=== PATIENT | male | born 1955 | race Caucasian/White ===

== ENCOUNTER 2017-04-26 19:18 | Inpatient (IN) | payer MEDICAID, OTHER ==
[~2017-04-26] VITALS: Ht 185.4 cm; Wt 81.6 kg
[2017-04-26] MEDS: NACL 0.9% 1,000 ML IV SCH
--- NOTE | 2017-04-26 19:18 | NUR ---
PT MERRY ALS. TAKEN TO BED 3
[2017-04-26 19:20] VITALS: BP 102/51
--- NOTE | 2017-04-26 19:20 | NUR ---
RT AT BEDSIDE
--- NOTE | 2017-04-26 19:20 | NUR ---
61Y/M PT. BIBA TO ED WITH C/O ALOC. PT. HX. HEPATIC ENCEPHALOPATHY, LIVER CIRRHOSIS. AAO X1, TO SELF, GCS 10, BOTH PUPILS 5 MM REACT. UNAABLE TO AMBULATE. RESPIRATIONS ON SIMPLE MASK O2 10 KLPM, LABORED, O2 SAT 100%, BL LUNG CLEAR. SKIN WARM AND DRY, BLE EDEMA +4. MULTIPLE BRUISES TO CHEST. COCCYX OPEN AREA. NO C/O PAIN, VSS, DR. OCONNOR AT BEDSIDE.
[2017-04-26] MEDS ORDERED: [UNRECOGNIZED DRUG - OTHER] PO (19:39)
[2017-04-26] MEDS ORDERED: ALBU2.5V (19:39)
[2017-04-26] MEDS ORDERED: RIFA550T (19:39)
[2017-04-26] MEDS ORDERED: ATI.5 (19:39)
[2017-04-26] MEDS ORDERED: THIA100T52 (19:39)
[2017-04-26] MEDS ORDERED: HAL1 PO (19:39)
[2017-04-26] MEDS ORDERED: PIPERACILLIN/TAZOBACTAM 3.375 GM in DEXTROSE 5% 50 ML IV ONE (20:20)
[2017-04-26] MEDS ORDERED: NACL 0.9% 1,000 ML IV ONE (20:20)
[2017-04-26 20:21] LABS: HEMOGLOBIN 10.8 g/dL (12.0-18.0); MEAN CORPUSCULAR HEMOGLOBIN 31 pg (27-31); MEAN CORPUSCULAR HGB CONC 33 g/dL (33-37); MEAN CORPUSCULAR VOLUME 95 fL (80-94); PLATELET COUNT (AUTO) 245 K/uL (140-450); RED BLOOD CELL COUNT(AUTO) 3.48 MIL/uL (4.20-6.10); RED CELL DISTRIBUTION WIDTH 19.4 % (11.6-13.7); WHITE BLOOD COUNT (AUTO) 10.1 K/uL (4.8-10.8)
[2017-04-26 20:41] LABS: LYMPHOCYTES % (MANUAL) 4 % (20-46); MONOCYTES % (MANUAL) 6 % (5-12)
[2017-04-26 20:48] LABS: AMYLASE 32 U/L (25-115); LIPASE 101 U/L (73-393)
[2017-04-26 20:49] LABS: PROTHROMBIN TIME 19.7 secs (10.8-13.4)
--- NOTE | 2017-04-26 20:49 | NUR ---
PT TAKEN TO CT
[2017-04-26 20:52] LABS: ALBUMIN 2.4 g/dL (3.4-5.0); ANION GAP 23.2 (8-16); CARBON DIOXIDE 16.6 mmol/L (21-32); POTASSIUM 4.8 mmol/L (3.5-5.1); TOTAL BILIRUBIN 6.5 mg/dL (0.0-1.0)
[2017-04-26] MEDS ORDERED: LACTULOSE 20 GM/30 ML UDC PO ONE (21:10)
[2017-04-26 21:26] LABS: APPEARANCE,URINE HAZY (CLEAR); BILIRUBIN,URINE NEGATIVE (NEGATIVE); BLOOD, URINE 3+ (NEGATIVE); COLOR,URINE YELLOW (YELLOW); LEUKOCYTE ESTERASE ,URINE 2+ (NEGATIVE); NITRITE, URINE NEGATIVE (NEGATIVE); UGLUCOSE NEGATIVE (NEGATIVE)
[2017-04-26] MEDS ORDERED: PIPERACILLIN/TAZOBACTAM 3.375 GM VIAL IV ONE (21:27)
--- NOTE | 2017-04-26 21:30 | NUR ---
PT. BACK FROM CT
[2017-04-26 21:43] LABS: RBC,URINE 3-10 (FEW) /HPF (0-5)
[2017-04-26 21:46] LABS: WBC,URINE TOO MANY TO COUNT /HPF (0-5); YEAST,URINE Rare /HPF (None Seen)
--- NOTE | 2017-04-26 22:00 | NUR ---
NG TUBE INSERTED PER DR. OCONNOR ORDERED.
[2017-04-26] MEDS ORDERED: HYDROcodone/APAP 7.5/325 MG 1 TAB PO PRN (22:55)
[2017-04-26] MEDS ORDERED: ACETAMINOPHEN 325 MG TAB PO PRN (22:55)
[2017-04-26] MEDS ORDERED: ONDANSETRON 4 MG/2 ML VIAL IVP PRN (22:55)
--- NOTE | 2017-04-26 23:00 | NUR ---
CHANGE TO NC 4 LPM, O 2 SAT 100%. NO S/SX OF DISTRESS AT THIS TIME.
[2017-04-26] MEDS ORDERED: LORazepam 0.5 MG TAB PO PRN (23:05)
--- NOTE | 2017-04-26 23:31 | NUR ---
PATIENT ADMITTED TO THE UNIT FROM ER. REPORT RECEIVED AT BEDSIDE FROM ER NURSE. PATIENT IS AOX0. PATIENT IS APHASIC. SKIN IS JAUNDICED. ECCHYMOSIS NOTED ON UPPER CHEST. ERYTHEMA NOTED ON RIGHT SIDE OF NECK. NG TUBE NOTED ON LEFT NARES. PATIENT ON 4L O2 VIA NC. PITTING EDEMA NOTED ON BILATERAL LOWER EXTREMITIES +3. WILL CONTINUE TO MONITOR.
--- NOTE | 2017-04-26 23:33 | NUR ---
Patient will be admitted to care of . Admited to TELEMETRY. Will go to [id number]. Belongings list completed. Report to JAMES.
[2017-04-27] VITALS (23 sets, daily range): BP systolic 90–127; BP diastolic 51–80
--- NOTE | 2017-04-27 | NUR ---
NOTIFIED DR. HOPE OF PATIENT'S DECREASING BLOOD PRESSURE. Addendum: 04/27/17 at 0245 by Nils White RN DR. HOPE STATED THAT PATIENT WILL BE TRANSFERRED TO ICU
[2017-04-27] MEDS ORDERED: FLUCONAZOLE 100 MG TAB PO SCH (00:12)
--- NOTE | 2017-04-27 01:30 | NUR ---
RECEIVED REPORT FROM FREDIS Manuel PT SKIN VERY DRY COLD TO TOUCH COLOR JAUNDICE, HE IS UN RESPONSIVE ON O2 EXTREAMITIES FLACID. ABDOMEN SOFT B/S HYPO ACTIVE LOWER EXTREMITIES PITTING EDEMATES +3 .GENITAL AREA REDNESS . SACCRAL AND BOTTOCK AREA IS REDDENESS HAS SOME BLOOD SIPPING IN SOME SPOT.
--- NOTE | 2017-04-27 01:30 | NUR ---
PATIENT REPORT GIVEN AT BEDSIDE TO ICU NURSE FOR CONTINUITY OF CARE
--- NOTE | 2017-04-27 01:40 | NUR ---
INTUBATED BY BRENNEN BLAKELY FROM ER AND DR. HOPE . ETT TO VENT SETTING AC 12 VT 500 FIO2 40% PEEP OF 5 PT REMAIN UNRESPONSIVE. HIS VITAL SIGN WITH IN NORMAL LIMIT.
--- NOTE | 2017-04-27 02:02 | NUR ---
CALLED TO ICU TO ASSES INTUBATION FOR PT IN BED 3 , WHO WAS JUST ADMITTED FROM ER. PT WAS INTUBATES WITH SIZE 7,5 AT 23AT LIP, AC 12, VT 500, PEEP 5, 40%, PT IS DRY , UNABLE TO OBTAIN SPUTUM FOR CULTURE.VENT CK DONE, DR AT BED SIDE TO PLACE CENTRAL LINE.
--- NOTE | 2017-04-27 02:10 | NUR ---
STEPHANIE LINE INSERTED BY JAYY BLAKELY AT RT, IJ.
--- NOTE | 2017-04-27 03:00 | NUR ---
RHODES CATH INSERTED HAS THICK PURULENT DRAINAGE RETURN SPECMENT SENT TO C/S.
[2017-04-27 04:54] LABS: FREE T4 (FREE THYROXINE) 0.91 ng/dL (0.76-1.46); MAGNESIUM 2.6 mg/dL (1.8-2.4); THYROID STIMULATING HORMONE 9.73 uIU/mL (0.34-3.74)
[2017-04-27] MEDS ORDERED: PIPER/TAZO 2.25GM/D5W PREMIX 50 ML IV SCH ×2 (05:00→08:27)
--- NOTE | 2017-04-27 05:09 | NUR ---
LAB CALLED [facility]. PT. LAB PHOSPHORUS 9.9. DEVON NOTIFIED NO ORDER CHANGED.
[2017-04-27 05:11] LABS: PHOSPHORUS 9.9 mg/dL (2.5-4.9)
--- NOTE | 2017-04-27 05:27 | NUR ---
SPUTUM COLLECTED, GAVE TO MARYANA MENDOZA, MOD THICK LITE BROWN
--- NOTE | 2017-04-27 06:10 | NUR ---
HAS HEMATURIA DR KEEN INFORMED.
[2017-04-27] MEDS: NACL 0.9% 1,000 ML IV SCH ×3 (06:59→22:44)
[2017-04-27] MEDS: metroNIDAZOLE 500 MG/NS PREMIX 100 ML IV SCH ×3 (07:00→22:48)
[2017-04-27] MEDS ORDERED: PIPERACILLIN/TAZOBACTAM 2.25 GM VIAL IV ONE (07:06)
--- NOTE | 2017-04-27 07:30 | NUR ---
RECEIVED REPORT FROM CANTRELL RN. PT UNRESPONSIVE TO NAME OR LIGHT PAIN STIMULI. BEDSIDE MONITOR SHOWS SR, ETT TO VENT WITH SETTING FIO2 40%,AC 12, VT 500, PEEP 5. NO S/S OF RESPIRATORY DISTRESS NOTED. GAG REFLEX NOTED. LUNG SOUND DIMINISHED UPON AUSCULTATION. NG TUBE IN PLACE, IV TO LEFT AC # 20 RUNNING NS AT 125 ML/HR. STEPHANIE CATH TO RIGHT IJ NOTED. RHODES CATH IN PLACE WITH SAMLL AMOUNT OF PURULENT URINE AND HEMATURIA NOTED. SKIN NON INTACT MULTIPLE ECCHYMOSIS NOTED. +3 PITTING EDEMA TO BOTH LOWER EXTREMITIES NOTED. PT UNABLE TO TURN HIMSELF, HOB ELEVATED 30 DEGREES WITH LOW BED POSITION, WILL CONTINUE TO MONITOR.
--- NOTE | 2017-04-27 07:41 | NUR ---
RECEIVED INTUBATED PT WITH 7.5 ETT SECURED @23 TEETH/GUMS ON VENT. SETTINGS AC 12, VT 500, PEEP 5 AND FIO2 40 %. PT SUCTIONED OBTAINED SMALL AMOUNT OF THICK YELLOW SECRETIONS,AIRWAY IS PATENT. PT IS NOT BITING OR KINKING OF ETT. VENT IS PLUGGED INTO RED OUTLET WITH ALARMS ON AND FUNCTIONING. PT IS NOT SOB AND NOT IN RESPIRATORY DISTRESS. WILL CONTINUE TO MONITOR.
--- NOTE | 2017-04-27 08:00 | NUR ---
ORAL CARE RENDERED. TURNED AND REPOSITIONED PT.
[2017-04-27] MEDS: LACTULOSE 20 GM/30 ML UDC PO SCH ×3 (08:18→16:16)
[2017-04-27] MEDS: CALCIUM ACETATE 667 MG TAB PO SCH ×3 (08:18→16:16)
[2017-04-27] MEDS: DOCUSATE SODIUM 100 MG GELCAP PO SCH ×2 (08:21→21:00)
[2017-04-27] MEDS: HALOPERIDOL 1 MG TAB PO SCH ×2 (09:00→21:00)
[2017-04-27] MEDS ORDERED: LACTULOSE 20 GM/30 ML UDC PO SCH (09:00)
[2017-04-27] MEDS ORDERED: LACTOBACILLUS RHAMNOSUS GG 1 EACH CAP PO SCH (09:00)
--- NOTE | 2017-04-27 09:00 | NUR ---
DUE MEDS GIVEN. PT TOLERATED WELL.
[2017-04-27 09:23] LABS: BASOPHILS # (AUTO) 0.1 K/uL (0.00-0.22); EOSINOPHILS # (AUTO) 0.1 K/uL (0-0.4); EOSINOPHILS % (AUTO) 0.8 % (0.0-4.0); HEMATOCRIT 28.7 % (36-52); HEMOGLOBIN 9.5 g/dL (12.0-18.0); LYMPHOCYTES # (AUTO) 1.2 K/uL (2.0-11.5); LYMPHOCYTES % (AUTO) 8.7 % (20.5-51.1); MEAN CORPUSCULAR HEMOGLOBIN 31 pg (27-31); MEAN CORPUSCULAR HGB CONC 33 g/dL (33-37); MEAN CORPUSCULAR VOLUME 94 fL (80-94); MONOCYTES # (AUTO) 0.1 K/uL (0.8-1.0); MONOCYTES % (AUTO) 0.4 % (1.7-9.3); NEUTROPHILS # (AUTO) 11.9 K/uL (1.8-7.7); NEUTROPHILS % (AUTO) 89.1 % (42.2-75.2); PLATELET COUNT (AUTO) 205 K/uL (140-450); RED BLOOD CELL COUNT(AUTO) 3.05 MIL/uL (4.20-6.10); RED CELL DISTRIBUTION WIDTH 19.6 % (11.6-13.7); WHITE BLOOD COUNT (AUTO) 13.4 K/uL (4.8-10.8)
[2017-04-27 09:23] LABS: BARBITURATE, URINE NEG. ng/ml (NEG <=200); BENZODIAZEPINE, URINE NEG. ng/mL (NEG <=200); CANNABINOID, URINE NEG. ng/mL (NEG <=50); COCAINE, URINE NEG. ng/mL (NEG <=300); OPIATE, URINE NEG. ng/mL (NEG <=2000); PHENCYCLIDINE SCREEN,URINE NEG. ng/mL (NEG <=25)
[2017-04-27 09:40] LABS: ANION GAP 22.5 (8-16); CARBON DIOXIDE 13.8 mmol/L (21-32); POTASSIUM 4.3 mmol/L (3.5-5.1)
[2017-04-27 09:44] LABS: CHOL/HDL RATIO 3.3 (1-4.5); MAGNESIUM 2.5 mg/dL (1.8-2.4)
[2017-04-27 10:00] LABS: CREATININE 7.8 mg/dL (0.7-1.3)
[2017-04-27 10:02] LABS: PHOSPHORUS 9.6 mg/dL (2.5-4.9)
--- NOTE | 2017-04-27 10:41 | NUR ---
PAGED CALCINER FEEDER, [place] HEAT[place], REGARDING SCHEDULED TREATMENT FOR TODAY. [place] AWARE.
[2017-04-27] MEDS: FAMOTIDINE 20 MG/2 ML VIAL IV SCH (11:15)
[2017-04-27] MEDS ORDERED: PROBIOTIC SCREEN 1 EA MISC MC PRN (11:30)
[2017-04-27] MEDS ORDERED: ALBUMIN HUMAN 25% 100 ML IV PRN (12:50)
[2017-04-27 14:15] LABS: ANION GAP 21.2 (8-16); POTASSIUM 4.2 mmol/L (3.5-5.1)
[2017-04-27 14:19] LABS: CREATININE 7.8 mg/dL (0.7-1.3)
--- NOTE | 2017-04-27 14:40 | NUR ---
PT'S FRIENDS PRESENT AT BEDSIDE, PT OPENS EYES AT THIS TIME BUT UNABLE TO FOLLOW COMMANDS.
--- NOTE | 2017-04-27 15:38 | NUR ---
PT SUCTIONED OBTAINED SMALL AMOUNT OF THICK YELLOW SECRETIONS. ETT IS SECURE WITH A PATENT AIRWAY. PT IS NOT SOB AND NOT IN RESPIRATORY DISTRESS AT THIS TIME. WILL CONTINUE TO MONITOR.
--- NOTE | 2017-04-27 16:25 | NUR ---
DIALYSIS NURSE RN CHOL STARTED DIALYSIS AT THIS TIME.
[2017-04-27] MEDS ORDERED: PHYTONADIONE 10 MG/ML AMP SUBQ SCH (17:30)
--- NOTE | 2017-04-27 17:31 | NUR ---
PT REMAINS ON DOCUMENTED SETTINGS NO CHANGES MADE TO VENT. PT IS NOT SOB AND NOT IN RESPIRATORY DISTRESS. ETT REMAINS SECURE WITH ANCHOR FAST DEVICE AND A PATENT AIRWAY IS STILL MAINTAINED. VENT ALARMS REMAIN ON AND FUNCTIONING.
--- NOTE | 2017-04-27 18:25 | NUR ---
DIALYSIS STOPPED AT THIS TIME, PER RN CHOL, NO OUTPUT.
--- NOTE | 2017-04-27 19:15 | NUR ---
REPORT GIVEN TO SALES OPERATIONS ASSISTANT RN.
--- NOTE | 2017-04-27 21:55 | NUR ---
PT HAD LARGE AMOUNT OF YELLOW LOOSE BOWEL MOVEMENT. COLACE NOT GIVEN.
[2017-04-27] MEDS: PIPER/TAZO 2.25GM/D5W PREMIX 50 ML IV SCH (22:08)
--- NOTE | 2017-04-27 23:00 | NUR ---
DR. MONTIEL AT BEDSIDE, UPDATED OF PATIENT'S CONDITION.
[2017-04-28] VITALS (24 sets, daily range): BP systolic 75–99; BP diastolic 51–68
--- NOTE | 2017-04-28 01:30 | NUR ---
NO SIGNS OF DISTRESS/NO SOB NOTED. PT IS CALM AT THIS TIME.
[2017-04-28] MEDS ORDERED: MORPHINE SULFATE 2 MG/ML SYR IVP PRN (02:20)
[2017-04-28] MEDS ORDERED: LORazepam 50 MG in NACL 0.9% 25 ML IV PRN (02:20)
--- NOTE | 2017-04-28 02:36 | NUR ---
LARGE YELLOW TO BROWN LOOSE BOWEL MOVEMENT
[2017-04-28] MEDS: NACL 0.9% 1,000 ML IV SCH ×3 (04:36→23:40)
[2017-04-28] MEDS ORDERED: PROPOFOL 1000 MG/100 ML PREMIX 100 ML IV PRN (05:25)
--- NOTE | 2017-04-28 05:30 | NUR ---
MORNING CARE GIVEN. DR. SEGURA AT BEDSIDE.
[2017-04-28] MEDS: metroNIDAZOLE 500 MG/NS PREMIX 100 ML IV SCH ×2 (05:53→12:26)
[2017-04-28 06:12] LABS: HEMATOCRIT 24.9 % (36-52); HEMOGLOBIN 8.4 g/dL (12.0-18.0); MEAN CORPUSCULAR HEMOGLOBIN 32 pg (27-31); MEAN CORPUSCULAR HGB CONC 34 g/dL (33-37); MEAN CORPUSCULAR VOLUME 95 fL (80-94); PLATELET COUNT (AUTO) 111 K/uL (140-450); RED BLOOD CELL COUNT(AUTO) 2.61 MIL/uL (4.20-6.10); RED CELL DISTRIBUTION WIDTH 19.1 % (11.6-13.7); WHITE BLOOD COUNT (AUTO) 11.9 K/uL (4.8-10.8)
[2017-04-28 06:17] LABS: MAGNESIUM 2.2 mg/dL (1.8-2.4); PHOSPHORUS 7.7 mg/dL (2.5-4.9)
[2017-04-28 06:20] LABS: ANION GAP 17.7 (8-16); CARBON DIOXIDE 18.5 mmol/L (21-32); POTASSIUM 3.2 mmol/L (3.5-5.1)
[2017-04-28 06:32] LABS: CREATININE 6.4 mg/dL (0.7-1.3)
[2017-04-28 06:45] LABS: EOSINOPHILS % (MANUAL) 1 % (0-4); LYMPHOCYTES % (MANUAL) 4 % (20-46); MONOCYTES % (MANUAL) 2 % (5-12)
--- NOTE | 2017-04-28 06:46 | NUR ---
RECEIVED PT ON [place]ES[place] ON /C 12 VT 500 PEEP 5 FIO2 40 LALRMS ARE ON AND FUNCTIONAL BMV HOB PTS ET TUBE SIZ3 7.5 IS SECURE 24 CM [address] FAST IN PLACE PT IN HF ASLLEP BS CLEAR\DIM NO APPERNT DISTRESS VENT PLUGGED INTO RED OUTLET Addendum: 04/28/17 at 0746 by Tabitha Kumar RT 23 CM CORRECT PLACEMENT Addendum: 04/28/17 at 0859 by Tabitha Kumar RT CUFF PRESSURE 24 [id number]
--- NOTE | 2017-04-28 07:20 | NUR ---
RECEIVED REPORT FROM NOC RN FOR CONTINUITY OF CARE. PATIENT IS LETHARGIC, BUT AROUSABLE BY PAIN STIMULI. SKIN WARM TO TOUCH WNL, TOENAILS ARE THICKENED, +2 BILATERAL LE EDEMA, FINE HAIR GROWTH AND FAINT BILATERAL PEDAL PULSES. ON ETT TO VENT. FC IN PLACE TO DARK DANE URINE IN SMALL AMOUNT. RIGHT IJ STEPHANIE CATHETER WITH PIGTAIL, PATENT AND INTACT. CALL LIGHT WITHIN REACH. BED ON LOWEST POSSIBLE POSITION. WILL CONTINUE TO MONITOR.
--- NOTE | 2017-04-28 07:25 | NUR ---
REPORT GIVEN TO MARYANA AGUAYO FOR CONTINUITY OF CARE
[2017-04-28] MEDS ORDERED: DOCUSATE 100 MG/10 ML UDC GT SCH (08:09)
[2017-04-28] MEDS ORDERED: HALOPERIDOL 1 MG TAB GT SCH (08:09)
[2017-04-28] MEDS ORDERED: ACETAMINOPHEN 650 MG/20.3 ML UDC GT PRN (08:09)
[2017-04-28] MEDS ORDERED: LORazepam 0.5 MG TAB GT PRN (08:10)
[2017-04-28] MEDS ORDERED: LACTOBACILLUS RHAMNOSUS GG 1 EACH CAP GT SCH (08:10)
[2017-04-28] MEDS ORDERED: HYDROcodone/APAP 7.5/325 MG 1 TAB GT PRN (08:11)
--- NOTE | 2017-04-28 08:27 | NUR ---
PATIENT HAS BEEN SCREENED AND CATEGORIZED HIGH NUTRITION RISK. PATIENT WILL BE SEEN WITHIN 1-2 DAYS OF ADMISSION. 04/27/17-04/28/[address]
[2017-04-28] MEDS: LACTULOSE 20 GM/30 ML UDC GT SCH ×2 (08:32→12:26)
[2017-04-28] MEDS: PIPER/TAZO 2.25GM/D5W PREMIX 50 ML IV SCH (08:33)
[2017-04-28 10:58] LABS: PROTHROMBIN TIME 23.5 secs (10.8-13.4)
[2017-04-28] MEDS: FAMOTIDINE 20 MG/2 ML VIAL IV SCH (11:30)
--- NOTE | 2017-04-28 13:30 | NUR ---
FAMILY MANAGER REPORTING PASTOR CONWAY COME TO VISIT AT BEDSIDE AND WOULD LIKE TO TALK TO THE DOCTOR ABOUT PATIENT CONDITION.
--- NOTE | 2017-04-28 13:30 | NUR ---
RESIDENT PHYSICIAN, DR. SEGURA SPOKE TO PATIENT'S SISTER VIRIDIANA CARCAMO FROM [place] REGARDING PATIENT'S CONDITION. PATIENT'S SISTER DECIDED TO CHANGE CODE STATUS TO COMFORT MEASURES/PALLIATIVE CARE. RESUSCITATION CODE FORM SIGNED AND PLACED IN CHART.
--- NOTE | 2017-04-28 13:35 | NUR ---
DR. PERLA CAME TO TALK TO THE TRAIN OPERATIONS SUPERVISOR EXPLAIN ABOUT PT CONDITION AND PROGNOSIS . THE TRAIN OPERATIONS SUPERVISOR CALLED PT. SISTER ROBI AND THEY AGREE TO CHANGED CODE STATUS TO DNR.
--- NOTE | 2017-04-28 13:50 | NUR ---
TALK TO ROBI BY PHONE EXPLAIN TO HER ABOUT COMFORT MEASURE AND PALLIATIVE CARE AND THE CONSENT WAS OBTAINED.
--- NOTE | 2017-04-28 13:57 | NUR ---
04/28/17 RD INITIAL ASSESSMENT COMPLETED PLEASE REFER TO NUTRITION ASSESSMENT UNDER CARE ACTIVITY FOR ESTIMATED NUTRITIONAL NEEDS. 1.CONTINUE NPO STATUS UNTIL MEDICALLY APPROPRIATE TO ADVANCE DIET. 2.CONSIDER: NUTREN PULMONARY @ 60 ML/HR X 24 HRS/DAY. THIS WILL PROVIDE 2160 KCALS AND 98 GM PRO/DAY TO MEET 100% OF ESTIMATED ENERGY AND PROTEIN NEEDS, AND PROVIDE 28 KCAL/KG AND 1.25 GM PRO/KG. 3.RD TO FOLLOW-UP 2-3 DAYS, HIGH RISK ZACHARY CONNOR RD Addendum: 04/28/17 at [address] PLAN IS FOR COMFORT CARE ONLY AT THIS TIME, NO PLAN FOR FEEDINGS. DIETITIAN WILL REMAIN AVAILABLE FOR DIET CONSULTS NEEDED.
--- NOTE | 2017-04-28 14:00 | NUR ---
PATIENT'S FAMILY AND CLOSE FRIENDS AT BEDSIDE.
--- NOTE | 2017-04-28 14:15 | NUR ---
REASON FOR EVALUATION: SACRALCOCCYX WOUND AND LOW RIZWAN SCORE COMPLETE SKIN ASSESSMENT DONE ON THIS 61 Y/O MALE PATIENT FROM [facility], WITH INITIAL DIAGNOSIS OF ALTER MENTAL STATUS. PAST MEDICAL HISTORY INCLUDE LIVER CIRRHOSIS, HEPATIC ENCEPHALOPATHY AND ALCOHOL ABUSE. ABOVE INFORMATION OBTAINED FROM THE ADMISSION H&P. LABS ARE WBC 11.9, H/H 8.4/24.9, GLUCOSE 70 AND ALBUMIN 2.4, PT/INR 19.7/1.9. CURRENT MEDS INCLUDE PIPERACILLIN, LORAZEPAM, ALBUTEROL AND LACTULOSE. PATIENT IS INTUBATED AND SEDATED, SKIN IS COLD TO TOUCH , TOENAILS ARE YELLOW AND THICKENED, NO HAIR GROWTH AND BILATERAL DORSAL PEDAL PULSES PRESENT.#16 F/C PATENT WITH HEMATURIA, CLOUDY URINE. BOWEL INCONTINENT WITH LOOSE GREENISH STOOL. NEEDS MAX ASSISTANCE IN TURNING. INITIAL PLAN OF CARE AND PRESSURE PREVENTIVE MEASURES DISCUSSED WITH PRIMARY RN. INTEGUMENTARY: MULTIPLE ECCHYMOSIS TO UPPER ARMS AND UPPER CHEST BLE MULTIPLE DRY SCALING PINK SPOTS RIGHT FOREARM SKIN TEAR 1X2CM WOUND BED PALE PINK AND DRY R/L GROINS INTERTRIGINOUS DERMATITIS RIGHT AND LEFT BUTTOCK - INCONTINENCE ASSOCIATE DERMATITIS. SACRALCOCCYX DTI - 3X4CM 100% MAROON LEFT AND RIGHT HEEL - PRESSURE ULCER STAGE I - 100% RED LEFT AND RIGHT ELBOW - PRESSURE ULCER STAGE I - 100% RED RECOMMENDATIONS: -SACRALCOCCYX DTI CLEANSE WITH NS. PAT DRY, APPLY SKIN PROTECTIVE BARRIER WIPE AND LEAVE IT OPEN TO AIR -BILATERAL BUTTOCKS IAD CLEANSE WITH MILD SOAP AND WATER, PAT DRY, APPLY Z GUARD BIDWC AND PRN IF SOILING LEAVE OPEN TO AIR -R/L HEELS AND ELBOWS STAGE I PRESSURE ULCER INJURY APPLY SKIN PROTECTIVE BARRIER WIPE BIDWC AND LEAVE IT OPEN TO AIR -R/L GROINS INTERTRIGINOUS DERMATITIS, CLEANSE WITH SOAP AND WATER, PAT DRY, APPLT ANTIFUNGAL CREAM BIDWC AND LEAVE LT OPEN TO AIR -RIGHT FOREARM SKIN TEAR CLEANSE WITH NS. PAT DRY, APPLY VERSATEL AND DRY DRESSING CHANGE Q5 DAYS AND PRN IF SOILING -TURN AND REPOSITION PATIENT Q2H TO LEFT AND RIGHT SIDE ONLY TO OFFLOAD SACRALCOCCYX AND BUTTOCKS -ASSESS AND MONITOR SKIN CONDITION DURING POSITION CHANGE, PLEASE PAY ATTENTION TO SACRALCOCCYX, ELBOWS AND HEELS -OFFLOAD BILATERAL HEELS BY PLACING PILLOWS UNDER CALVES AT ALL TIMES, UNLESS OTHERWISE CONTRAINDICATED -KEEP SKIN CLEAN AND DRY AT ALL TIMES. -PRESSURE REDISTRIBUTION SURFACE THERAPY. RECOMMENDATIONS DISCUSSED WITH PRIMARY RN WILL FOLLOW UP PATIENT Q7 -10 DAYS AND PRN. PLEASE CONTACT WOUND CARE NURSE FOR ANY QUESTIONS AND CHANGES IN SKIN CONDITION.
--- NOTE | 2017-04-28 15:25 | NUR ---
This music writer contacted Patient's Sister Wendi Anderson at as a courtesy call to update on patient's status and discuss possible family members that lives in the area or in [place] that she may want to be notify about Patient's conditions and status. Mrs. Anderson stated that since, she was aware and notified about patient's recent status changes; she has made all the contacts with all family members and close friends of the family that will need to be notified and allowed to come see patient at [facility]. Mrs. Anderson listed Beck and Mary Gilbert (Close friends of the family), Clarisse Mack, Wilner, and Karen Frederick (Close friends of the family), as well Brant Abdiel (Close friend to patient) as patient's relatives that have been notified and will be attending this evening to see patient. Mrs. Anderson stated that she has also contacted [facility] in [place], [place] to make arrangements when needed. Mrs. Anderson also stated that this is the home where she wishes her brother's (Patient) body to be release when the time comes; Stated that she also has contacted [facility] to inform them that Patient will not be returning to their facility and ask them to gather patient's belongings for her to diamond picker when she is available. Mrs. Anderson stated that she lives and is at the present moment in [place] and is continue to make arrangements to possibly arrive earlier but as of now she has book a fly to [place] on 05/14/17. She stated that is trying to get here sooner but still in the process, mean while she would like to be notify at any time of any changes on status of patient. Mrs. Anderson thank psych social worker for call and stated that she has no questions or concerns at the time. Sound Installation Worker and/or ict managers will be following up as needed.
[2017-04-28] MEDS: MORPHINE SULFATE 100 MG in NACL 0.9% 90 ML IV SCH (18:31)
--- NOTE | 2017-04-28 18:35 | NUR ---
MORPHINE DRIP STARTED AT 2MG/H. PATIENT'S CLOSE FRIEND RAINER AT BEDSIDE.
--- NOTE | 2017-04-28 19:15 | NUR ---
INCREASE MORPHINE IV DRIP TO 3MG/MINIT.
--- NOTE | 2017-04-28 19:26 | NUR ---
REPORT GIVEN TO NIGHT RN FOR CONTINUITY OF CARE.
--- NOTE | 2017-04-28 19:34 | NUR ---
1930 EXTUBATED PATIENT PER FAMILIES REQUEST.
--- NOTE | 2017-04-28 22:00 | NUR ---
PT IS NON RESPONSIVE MORPHINE DRIP AT 3MG/HR FAMILY LEFT.
[2017-04-29] VITALS (9 sets, daily range): BP systolic 45–71; BP diastolic 27–47
--- NOTE | 2017-04-29 | NUR ---
REPORT GIVE TO RODNEY MIJARES.
--- NOTE | 2017-04-29 02:00 | NUR ---
PT ON ROOM AIR SATS 93%, SBP on 60s, 80s HR, NSR, IVF running. Continuous on Morphine drip at 3mg/hr, CPOT 0.
--- NOTE | 2017-04-29 04:10 | NUR ---
PT ASLEEP COMFORTABLY, CONTINUES ON MORPHINE DRIP AT 3MG/HR, CPOT 0.
--- NOTE | 2017-04-29 05:30 | NUR ---
RECEIVED REPORT FROM CAST ASSOCIATE RN. PT UNRESPONSIVE, BEDSIDE MONITOR SHOWS SR, ROOM AIR, NO S/S OF RESPIRATORY DISTRESS NOTED. LUNG SOUND DIMINISHED. PT ON MORPHINE 3 MLS/HR AND NS AT 126 MLS/HR, RIGHT IJ INTACT AND PATENT. RHODES CATH IN PLACE WITH MINIMUM URINE NOTED. WILL CONTINUE TO MONITOR.
[2017-04-29 06:15] LABS: FERRITIN 118 ng/mL (30-400)
[2017-04-29] MEDS: NACL 0.9% 1,000 ML IV SCH ×2 (06:32→16:31)
--- NOTE | 2017-04-29 07:48 | NUR ---
SUCTIONED PT WITH MODERATE AMOUNT OF YELLOW THICK SPUTUM.
[2017-04-29 08:26] LABS: HEPATITIS A ANTIBODY IGM Negative (Negative); HEPATITIS B CORE AB TOTAL Negative (Negative); HEPATITIS B SURFACE ANTIBODY Non Reactive (.); HEPATITIS B SURFACE ANTIGEN Negative (Negative)
[2017-04-29 09:18] LABS: OSMOLALITY,URINE 250 mOsmol/kg (.)
--- NOTE | 2017-04-29 10:22 | NUR ---
O2 SAT 89%, SUCTIONED PT AND PUT PT ON O2 NC 2L/MIN, O2 SAT INCREASED TO 92%.
--- NOTE | 2017-04-29 11:26 | NUR ---
PT STILL UNRESPONSIVE, DNR STATUS. HYPOTENSIVE. O2 SATS 98%, PT'S FRIEND AT BEDSIDE.
[2017-04-29] MEDS: FAMOTIDINE 20 MG/2 ML VIAL IV SCH (11:41)
--- NOTE | 2017-04-29 12:00 | NUR ---
RECEIVED REPORT FROM NICOLAS MIJARES. PT IS UNRESPONSIVE. MORPHINE AT 3 MG/HR. PLACED ON CONTACT ISOLATION FOR MDRO SPUTUM. IN SR WITHOUT ECTOPICS. 02 2L/M/NC. NO RESP. DISTRESS NOTED. FC IN PLACE WITH SCANT URINE OUTPUT. SL DANE WITH BROWN SEDIMENTS. TLC RT TLC INTACT AND PATENT. FRIENDS AT BEDSIDE INSTRUCTED ON CONTACT ISOLATION.
--- NOTE | 2017-04-29 13:25 | NUR ---
CM NOTE INITIAL REVIEW FAXED TO [facility] [phone] [facility] [phone]
--- NOTE | 2017-04-29 14:00 | NUR ---
FRIENDS AT BEDSIDE. UPDATED ON PT'S CONDITION.
--- NOTE | 2017-04-29 16:00 | NUR ---
SUCTIONED ORALLY FOR SMALL AMT YELLOWISH SECRETIONS. PT REMAINS UNRESPONSIVE.
[2017-04-29] MEDS: MORPHINE SULFATE 100 MG in NACL 0.9% 90 ML IV SCH (17:12)
--- NOTE | 2017-04-29 18:20 | NUR ---
DR. PERLA HERE. NOTIFIED OF PT'S INTAKE 155 OUTPUT 10 ML ONLY. MAIN IVF DECREASED TO 10 ML/HR.
--- NOTE | 2017-04-29 19:20 | NUR ---
RECEIVED REPORT FROM MORNING SHIFT NURSE. PT UNRESPONSIVE, SEDATED WITH MORPHINE DRIP 3MG/HR. BEDSIDE LEGAL ADMINISTRATIVE ASSISTANT SHOWS SR, RATE 71, RR 12, BP 52/28, O2 SAT 92% WITH NS 2L/M. NO S/S OF RESPIRATORY DISTRESS NOTED. LUNG SOUND DIMINISHED. PT HAS CENTRAL LINE ON RIGHT IJ INTACT AND PATENT. PT ON NS 10ML/HR. RHODES CATH IN PLACE WITH MINIMUM URINE NOTED. WILL CONTINUE TO MONITOR.
--- NOTE | 2017-04-29 19:21 | NUR ---
REPORT GIVEN TO JEFF MIJARES.
--- NOTE | 2017-04-29 21:00 | NUR ---
PT IS IN BED, UNRESPONSIVE. HEART RATE IS GETTING SLOWER FROM MONITOR AT 30'S. NOTIFIED DR. MORENO.
--- NOTE | 2017-04-29 21:05 | NUR ---
DR. MORENO PRONOUNCED PT'S AT 2102. LEFT THE MESSAGE TO SISTER ROBI AND NOAH AT 2104.
--- NOTE | 2017-04-29 21:40 | NUR ---
SPOKE WITH [facility]. THEY WILL NOT COME TO SEE THE PT AT THIS TIME. REPORT GIVEN TO GERHARD AT 2140. NOTIFIED BALANCE CLERK ABOUT PT'S , WAITING FOR CALL BACK. Addendum: 04/29/17 at 0329 by Denis Dawson RN GERHARD SPOKE WITH ANA LUISA CASE # [id number]
--- NOTE | 2017-04-29 23:09 | NUR ---
REPORT GIVEN TO RN ACLS AT 2309 WITH BARON CASE # [id number]. OK TO RELEASE THE BODY.
--- NOTE | 2017-04-29 23:20 | NUR ---
REPORT GIVEN TO MORTUARY: [facility], [address] [address] TEL [phone]. THEY WILL MOLD RELEASE WORKER THE BODY IN 2 HOURS.
--- NOTE | 2017-04-30 00:54 | NUR ---
PT'S BODY PICKED UP BY [facility].
== END 2017-04-29 21:03 | disposition expired | DRG 720 ==
LOC: MED 19:18 → MTU 22:14 → MIC 04-27 01:18
PROVIDERS: ADMIT Student in an Organized Health Care Education/Training Program; ATTEND Student in an Organized Health Care Education/Training Program
PROC: 02HV33Z Insertion of Infusion Device into Superior Vena Cava, Percutaneous Approach (ICD-10-PCS; principal; 2017-04-27)
PROC: 5A1945Z Respiratory Ventilation, 24-96 Consecutive Hours (ICD-10-PCS; 2017-04-27)
PROC: 0BH17EZ Insertion of Endotracheal Airway into Trachea, Via Natural or Artificial Opening (ICD-10-PCS; 2017-04-27)
PROC: B548ZZA Ultrasonography of Superior Vena Cava, Guidance (ICD-10-PCS; 2017-04-27)
PROC: 5A1D70Z Performance of Urinary Filtration, Intermittent, Less than 6 Hours Per Day (ICD-10-PCS; 2017-04-27)
DX: A41.9 Sepsis, unspecified organism (principal); N17.0 Acute kidney failure with tubular necrosis; R65.21 Severe sepsis with septic shock; G93.41 Metabolic encephalopathy; E43 Unspecified severe protein-calorie malnutrition; J96.01 Acute respiratory failure with hypoxia; J96.02 Acute respiratory failure with hypercapnia; J90 Pleural effusion, not elsewhere classified; D68.4 Acquired coagulation factor deficiency; I46.9 Cardiac arrest, cause unspecified; Z66 Do not resuscitate; Z51.5 Encounter for palliative care; E22.2 Syndrome of inappropriate secretion of antidiuretic hormone; N18.9 Chronic kidney disease, unspecified; D53.9 Nutritional anemia, unspecified; F10.10 Alcohol abuse, uncomplicated; Y90.9 Presence of alcohol in blood, level not specified; E87.8 Other disorders of electrolyte and fluid balance, not elsewhere classified; K72.90 Hepatic failure, unspecified without coma; N39.0 Urinary tract infection, site not specified; K70.31 Alcoholic cirrhosis of liver with ascites; K52.9 Noninfective gastroenteritis and colitis, unspecified; N13.30 Unspecified hydronephrosis; R74.0 Nonspecific elevation of levels of transaminase and lactic acid dehydrogenase [LDH]; Z68.23 Body mass index [BMI] 23.0-23.9, adult
CPT/HCPCS: 36415; 36600; 71250; 80048; 80053; 80305; 81001; 82140; 82150; 82550; 82553; 82607; 82728; 82746; 82803; 83036; 83540; 83605; 83690; 83735; 83874; 83880; 83930; 83935; 84100; 84300; 84439; 84443; 84484; 85025; 85045; 85610; 85730; 86704; 86706; 86708; 86709; 86803; 87040; 87070; 87081; 87086; 87186; 87205; 87340; 93005; 94003; C1758; G0482; J1642; J1644; J2060; J2270; J2543; J3430; J3490; J7030; P9046; Q0092